=== PATIENT | female | born 1980 | race American Indian/Alaskan Native ===

== ENCOUNTER 2018-08-25 16:41 | Outpatient (CLI) | payer BC, OTHER ==
[2018-08-25 17:33] VITALS: BP 127/57
== END 2018-08-25 17:50 | disposition home or self-care (01) ==
LOC: TRG 16:41
PROVIDERS: ATTEND Obstetrics & Gynecology
DX: O47.02 False labor before 37 completed weeks of gestation, second trimester (principal); Z3A.20 20 weeks gestation of pregnancy